=== PATIENT | male | born 1970 ===

== ENCOUNTER 2018-01-10 12:09 | Emergency (ER) | payer OTHER ==
[2018-01-10 12:18] VITALS: RESP 18
[2018-01-10] MEDS ORDERED: Sodium Chloride 0.9% 1,000 ML IV STA (12:36)
[2018-01-10] MEDS ORDERED: Iohexol 240 (50 ml) ONE (13:02)
[2018-01-10 13:10] LABS: BASO % 0.5 % (0.0-2.0); EOS # 0.1 K/uL (0.0-0.7); EOS % 2.6 % (0.0-4.0); HEMOGLOBIN 14.8 g/dL (12.0-18.0); LYMPH # 1.2 K/uL (1.0-4.3); LYMPH % 22.7 % (20.0-40.0); MEAN CELL VOLUME 90.9 fl (80.0-94.0); MEAN CORPUSCULAR HEMOGLOBIN 31.5 pg (27.0-31.0); MEAN CORPUSCULAR HGB CONC 34.7 g/dL (33.0-37.0); MEAN PLATELET VOLUME 9.9 fl (7.2-11.7); MONO # 0.7 K/uL (0.0-0.8); MONO % 11.9 % (0.0-10.0); NEUT # 3.4 K/uL (1.8-7.0); NEUT % 62.3 % (50.0-75.0); NRBC % 0.1 % (0.0-0.0); RBC 4.7 Mil/uL (4.40-5.90); RED CELL DISTRIBUTION WIDTH 13.6 % (11.5-14.5); WHITE BLOOD COUNT 5.5 K/uL (4.8-10.8)
[2018-01-10 13:11] LABS: URINE BILIRUBIN NEGATIVE (NEGATIVE); URINE BLOOD NEGATIVE (NEGATIVE); URINE CLARITY SLIGHTY-CLOUDY (Clear); URINE COLOR YELLOW (YELLOW); URINE GLUCOSE (UA) NEG (Normal); URINE LEUKOCYTE ESTERASE NEG Leu/uL (Negative); URINE PROTEIN NEGATIVE (NEGATIVE); URINE UROBILINOGEN 0.2-1.0 mg/dL (0.2-1.0)
[2018-01-10 13:25] LABS: ALB/GLOB RATIO 1.3 (1.0-2.1); ALBUMIN 4.1 g/dL (3.5-5.0); ALT/SGPT 45 U/L (21-72); AST/SGOT 42 U/L (17-59); BLOOD UREA NITROGEN 13 mg/dl (9-20); CALCIUM 9.6 mg/dL (8.4-10.2); GFR NON-AFRICAN AMERICAN > 60; LIPASE 97 U/L (23-300)
[2018-01-10] MEDS ORDERED: Iohexol 240 (50 ml) PO ONE (13:26)
--- NOTE | 2018-01-10 15:25 | ED PDOC ---
HPI: Abdomen Time Seen by Provider: 01/10/18 12:36 Chief Complaint (Nursing): Abdominal Pain Chief Complaint (Provider): abdominal pain diarrhea History Per: Patient History/Exam Limitations: no limitations Location Of Pain/Discomfort: RLQ, Periumbilical Quality Of Discomfort: Sharp Associated Symptoms: Nausea, Diarrhea. denies: Vomiting, Back Pain, Chest Pain , Urinary Symptoms Exacerbating Factors: None Alleviating Factors: None Last Bowel Movement: Today Additional Complaint(s): 47yo male c/o lower abd pain L>R ongoing for 2-3 days associated with diarrhea and blood noted in stool. Notes nausea denies vomiting, dizziness, syncope or fever. No prior history of similar pain. Past Medical History Reviewed: Historical Data, Nursing Documentation, Vital Signs Vital Signs: Last Vital Signs Temp 98.6 F 01/10/18 12:14 Pulse 72 01/10/18 12:14 Resp 18 01/10/18 12:14 BP 129/86 01/10/18 12:14 Pulse Ox 100 01/10/18 12:14 - Medical History PMH: No Chronic Diseases Denies: Chronic Kidney Disease - Surgical History Surgical History: Appendectomy - Family History Family History: States: Unknown Family Hx - Living Arrangements Living Arrangements: With Family - Social History Current smoker - smoking cessation education provided: No - Allergies Allergies/Adverse Reactions: Allergies Allergy/AdvReac Type Severity Reaction Status Date / Time No Known Allergies Allergy Verified 01/10/18 12:14 Review of Systems Constitutional: Negative for: Fever, Malaise ENT: Negative for: Throat Pain Cardiovascular: Negative for: Chest Pain Respiratory: Negative for: Shortness of Breath Gastrointestinal: Positive for: Nausea, Abdominal Pain, Diarrhea, Hematochezia. Negative for: Vomiting Genitourinary Male: Negative for: Dysuria, Hematuria Musculoskeletal: Negative for: Neck Pain Skin: Negative for: Rash, Lesions Neurological: Negative for: Weakness, Numbness, Headache Physical Exam - Reviewed Nursing Documentation Reviewed: Yes Vital Signs Reviewed: Yes - Physical Exam Appears: Positive for: Well, Non-toxic, No Acute Distress Head Exam: Positive for: ATRAUMATIC, NORMAL INSPECTION, NORMOCEPHALIC Skin: Positive for: Normal Color, Warm, DRY Eye Exam: Positive for: EOMI, Normal appearance, PERRL ENT: Positive for: Normal ENT Inspection Neck: Positive for: Normal, Painless ROM Cardiovascular/Chest: Positive for: Regular Rate, Rhythm Respiratory: Positive for: CNT, Normal Breath Sounds Gastrointestinal/Abdominal: Positive for: Soft, Tenderness (LLQ). Negative for : Guarding, Other Back: Positive for: Normal Inspection Extremity: Positive for: Normal ROM Neurologic/Psych: Positive for: Alert, Oriented - Laboratory Results Result Diagrams: 01/10/18 13:00 01/10/18 13:00 - ECG O2 Sat by Pulse Oximetry: 100 Medical Decision Making Medical Decision Making: workup for lower abd pain obtain labs and CT imaging labs reviewed clinically unremarkable, Hgb neg, chem unremarkable Explained need for GI followup regardless of CT result endorse Dr Chilel 330p pending CT and dispo Disposition - Clinical Impression Clinical Impression: Abdominal pain - Patient ED Disposition Is Patient to be Admitted: Transfer of Care Counseled Patient/Family Regarding: Studies Performed, Diagnosis - Disposition Disposition Time: 15:27 Patient Signed Over To: Loraine Chilel Handoff Comments: pending CT and dispo/diagnosis/ consults as appropriate
--- NOTE | 2018-01-10 15:50 | ED PDOC ---
- Laboratory Results Result Diagrams: 01/10/18 13:00 01/10/18 13:00 - ECG O2 Sat by Pulse Oximetry: 100 (RA) Pulse Ox Interpretation: Normal - Progress Re-evaluation Time: 19:30 Condition: Re-examined, Improved Medical Decision Making Medical Decision Makin:30 --care endorsed to myself pending CT and final disposition. 17:02 CT Abdomen/Pelvis FINDINGS: LOWER THORAX: Unremarkable. LIVER: Hepatic steatosis. No focal masses. No intrahepatic bile duct dilatation or perihepatic ascites. GALLBLADDER AND BILE DUCTS: Unremarkable. PANCREAS: Unremarkable. No gross lesion or ductal dilatation. SPLEEN: Benign prostate calcifications within the spleen likely the sequela of prior exposure to granulomatous disease. ADRENALS: Unremarkable. No mass. KIDNEYS AND URETERS: Unremarkable. No hydronephrosis. No solid mass. VASCULATURE: Unremarkable. No aortic aneurysm. BOWEL: Diffuse thickening of the wall of the transverse colon, descending colon, sigmoid and rectum. Less pronounced changes identified in the ascending. Findings are consistent with acute silva colitis. APPENDIX: No abnormalities to suggest acute appendicitis. No right lower quadrant inflammatory processes identified. PERITONEUM: Unremarkable. No free fluid. No free air. LYMPH NODES: Unremarkable. No enlarged lymph nodes. BLADDER: Unremarkable. REPRODUCTIVE: Unremarkable. BONES: No acute fracture. OTHER FINDINGS: None. IMPRESSION: Diffuse colitis. The most severely affected areas include descending colon and contiguous sigmoid and rectum. Scribe Attestation: Documented by Katie Spencer, acting as a scribe for Loraine Wilburn MD Provider Scribe Attestation: All medical record entries made by the Scribe were at my direction and personally dictated by me. I have reviewed the chart and agree that the record accurately reflects my personal performance of the history, physical exam, medical decision making, and the department course for this patient. I have also personally directed, reviewed, and agree with the discharge instructions and disposition. Disposition Doctor Will See Patient In The: Office Counseled Patient/Family Regarding: Studies Performed, Diagnosis, Need For Followup - Clinical Impression Clinical Impression: Abdominal pain, Colitis - POA Present On Arrival: None - Disposition Referrals: Betty Rowan MD [Medical Doctor] - Disposition: Routine/Home Disposition Time: 19:30 Condition: FAIR Additional Instructions: ALICE ONEAL, thank you for letting us take care of you today. Your provider was Loraine Chilel MD and you were treated for ABD PAIN. The emergency medical care you received today was directed at your acute symptoms. If you were prescribed any medication, please fill it and take as directed. It may take several days for your symptoms to resolve. Return to the Emergency Department if your symptoms worsen, do not improve, or if you have any other problems. Please contact your doctor or call one of the physicians/clinics you have been referred to that are listed on the Patient Visit Information form that is included in your discharge packet. Bring any paperwork you were given at discharge with you along with any medications you are taking to your follow up visit. Our treatment cannot replace ongoing medical care by a primary care provider outside of the emergency department. Thank you for allowing the [facility] team to be part of your care today. If you had an X-Ray or CT scan: A Radiologist will review the ED reading if any change in treatment is needed we will contact you. If you had a blood, urine, or wound culture: It will take several days for the results, if any change in treatment is needed we will contact you. If you had an STI test: It will take 48 hours for the results. Please call after 1 week if you have not heard back. Prescriptions: Ciprofloxacin HCl [Cipro] 500 mg PO BID #14 tablet Metronidazole [Flagyl] 500 mg PO BID #14 tab Instructions: Inflammatory Bowel Disease (DC) Forms: [employer] (Gabonese) Print Language: CITIZEN OF [place]
[2018-01-10] MEDS ORDERED: Iohexol 300 100 ML IJ ONE (16:20)
[2018-01-10] MEDS ORDERED: Sodium Chloride 0.9% 50 ML IV ONE (16:20)
--- NOTE | 2018-01-10 17:03 | CT ---
Date of service: 01/10/2018 PROCEDURE: CT Abdomen and Pelvis with contrast HISTORY: Left lower quadrant pain. Rectal bleeding COMPARISON: None. TECHNIQUE: Contrast dose: 95 cc Omnipaque 300 Radiation dose: Total exam DLP = 726.59 mGy-cm. This CT exam was performed using one or more of the following dose reduction techniques: Automated exposure control, adjustment of the mA and/or kV according to patient size, and/or use of iterative reconstruction technique. FINDINGS: LOWER THORAX: Unremarkable. LIVER: Hepatic steatosis. No focal masses. No intrahepatic bile duct dilatation or perihepatic ascites. GALLBLADDER AND BILE DUCTS: Unremarkable. PANCREAS: Unremarkable. No gross lesion or ductal dilatation. SPLEEN: Benign prostate calcifications within the spleen likely the sequela of prior exposure to granulomatous disease. ADRENALS: Unremarkable. No mass. KIDNEYS AND URETERS: Unremarkable. No hydronephrosis. No solid mass. VASCULATURE: Unremarkable. No aortic aneurysm. BOWEL: Diffuse thickening of the wall of the transverse colon, descending colon, sigmoid and rectum. Less pronounced changes identified in the ascending. Findings are consistent with acute silva colitis. APPENDIX: No abnormalities to suggest acute appendicitis. No right lower quadrant inflammatory processes identified. PERITONEUM: Unremarkable. No free fluid. No free air. LYMPH NODES: Unremarkable. No enlarged lymph nodes. BLADDER: Unremarkable. REPRODUCTIVE: Unremarkable. BONES: No acute fracture. OTHER FINDINGS: None. IMPRESSION: Diffuse colitis. The most severely affected areas include descending colon and contiguous sigmoid and rectum.
[2018-01-10 20:02] VITALS: BP 132/80; PULSE 62; TEMP 98
[2018-01-10 20:06] VITALS: O2SAT 100
== END 2018-01-10 20:25 | disposition home or self-care (01) ==
LOC: H.ER 12:09
DX: K52.9 Noninfective gastroenteritis and colitis, unspecified (principal); R10.31 Right lower quadrant pain
CPT/HCPCS: 74177; 80053; 81003; 83690; 85025; 96360; 99284; J7030; Q9966; Q9967